=== PATIENT | male | born 1940 | race American Indian/Alaskan Native ===

== ENCOUNTER 2018-07-04 08:56 | Day surgery (SDC) | payer MEDICARE ==
--- NOTE | 2018-07-04 10:20 | CP.SDSHP ---
Same Day Surgery H & P - History Proposed Procedure: Colonoscopy Pre-Op Diagnosis: History of colon polyps - Previous Medical/Surgical History Cardiac: Hypertension Endocrine/Metabolic: Diabetes Comments: hyperlipidemia. nephrolithiasis Previous Surgical History: none - Allergies Allergies: Allergies No Known Allergies Allergy (Verified 07/04/18 09:21) - Current Medications Current Medications: per reconciliation- reviewed in addition- lipitor, Aspirin 325 - Physical Exam General Appearance: wdwn nad Vital Signs: Vital Signs 07/04/18 09:10 Temperature 97.5 F L Pulse Rate 97 H Respiratory 19 Rate Blood Pressure 126/70 O2 Sat by Pulse 100 Oximetry Mental Status: Alert & Oriented x3 Heart: WNL Lungs: WNL GI: WNL - {Optional Preform as Required} Abdomen: WNL - Impression Impression: polyp surveillance Pt. Evaluated Today:Candidate for Anesthesia & Procedure: Yes - Date & Time Date: 07/04/18 Time: 10:20 Short Stay Discharge - Short Stay Discharge Admitting Diagnosis/Reason for Visit: H/O COLONIC POLYPS Disposition: HOME/ ROUTINE
[2018-07-04] MEDS ORDERED: Propofol 10 mg/ml Inj (20 ML) ONE (10:24)
[2018-07-04] MEDS ORDERED: Lactated Ringer's 1,000 ML IV ONE (10:41)
[2018-07-04 11:00] VITALS: TEMP 97.8
[2018-07-04 11:06] VITALS: O2SAT 100
[2018-07-04 11:56] VITALS: BP 113/76; PULSE 65; RESP 13
== END 2018-07-04 11:45 | disposition home or self-care (01) ==
LOC: C.ENDO 08:56
PROVIDERS: ATTEND Internal Medicine Gastroenterology
DX: Z12.11 Encounter for screening for malignant neoplasm of colon (principal); Z86.010 Personal history of colon polyps; K57.90 Diverticulosis of intestine, part unspecified, without perforation or abscess without bleeding; K64.8 Other hemorrhoids
CPT/HCPCS: 45378; 82948; J2704; J7040; J7120